=== PATIENT | female | born 1985 | race Caucasian/White ===

== ENCOUNTER 2024-05-18 13:22 | Emergency (ER) | payer OTHER ==
[~2024-05-18] VITALS: Ht 165.1 cm; Wt 81.3 kg
[2024-05-18 13:24] VITALS: BP 128/78; PULSE 72; RESP 16; TEMP 97.8; O2SAT 99
[2024-05-18] MEDS: ACETAMINOPHEN EXTRA STRENGTH 500 MG TAB PO ONE (13:43)
[2024-05-18] MEDS: IBUPROFEN 600 MG TAB PO ONE (13:43)
[2024-05-18] MEDS ORDERED: ACET500T99 PO (14:09)
[2024-05-18] MEDS ORDERED: IBUP-2213 PO (14:09)
[2024-05-18 14:21] VITALS: BP 128/78; PULSE 72; RESP 16; TEMP 97.8; O2SAT 99
== END 2024-05-18 14:21 | disposition home or self-care (01) ==
LOC: MED 13:22
DX: M25.561 Pain in right knee (principal); Z79.899 Other long term (current) drug therapy
CPT/HCPCS: 73562; 99283